=== PATIENT | female | born 1980 | race Caucasian/White ===

== ENCOUNTER 2017-08-08 19:49 | Emergency (ER) | payer BC | END 2017-08-08 21:15 | disposition left against medical advice (07) | LOC: E/R 21:15 | DX: J06.9 Acute upper respiratory infection, unspecified (principal) | CPT/HCPCS: 87400; 99282 ==

== ENCOUNTER 2018-11-17 19:37 | Emergency (ER) | payer SELFPAY, BC | END 2018-11-17 22:06 | disposition left against medical advice (07) | LOC: E/R 19:37 | DX: Z53.21 Procedure and treatment not carried out due to patient leaving prior to being seen by health care provider (principal) | CPT/HCPCS: 93005 ==